=== PATIENT | female | born 1955 | race Caucasian/White ===

== ENCOUNTER 2018-01-14 15:36 | Emergency (ER) | payer BC ==
[~2018-01-14] VITALS: Ht 160 cm; Wt 118.0 kg
[2018-01-14 15:53] VITALS: BP 246/112; PULSE 87; RESP 18; TEMP 98; O2SAT 98
[2018-01-14 16:55] VITALS: BP 220/82; PULSE 78; RESP 18; O2SAT 98
[2018-01-14] MEDS ORDERED: ACETAMINOPHEN/HYDROcodone 325 MG/5 MG TAB PO ONE (17:00)
--- NOTE | 2018-01-14 17:03 | PD ---
HPI Chief Complaint: Fall Time Seen by Provider: 16:39 Travel History International Travel<30 days: No Contact w/Intl Traveler<30days: No Traveled to known affect area: No History of Present Illness HPI 62-year-old female patient presents to the ER today because she states that she had tripped and fallen on her right side, is having right arm pains which she currently rated a 5 out of 10. She states is subsiding while she is in the ER. She denies hitting her head, had no loss consciousness. She denies any chest pains, trouble breathing, or any other issues or injuries. Modifying Factors: None Associated Signs & Symptoms: Fall, right arm injury Risk Factors: None PFSH Past Medical History Medical History: Denies Significant Hx ?: Not : 2 Para: 2 Past Surgical History Cholecystectomy: Yes Hysterectomy: No Social History Alcohol Use: No Tobacco Use: No Substance Use: No Allergies-Medications (Allergen,Severity, Reaction): Coded Allergies: No Known Allergies (Unverified , 01/14/18) Reported Meds & Prescriptions Reported Meds & Active Scripts Active No Active Prescriptions or Reported Medications Review of Systems Except as stated in HPI: all other systems reviewed are Neg Physical Exam Narrative GENERAL: Well-developed obese elderly white female patient currently in mild distress. Awake and oriented 3. SKIN: Focused skin assessment warm/dry. HEAD: Atraumatic. Normocephalic. EYES: Pupils equal and round. No scleral icterus. No injection or drainage. ENT: No nasal bleeding or discharge. Mucous membranes pink and moist. NECK: Trachea midline. No JVD. CARDIOVASCULAR: Regular rate and rhythm. No murmur appreciated. RESPIRATORY: No accessory muscle use. Clear to auscultation. Breath sounds equal bilaterally. GASTROINTESTINAL: Abdomen soft, non-tender, nondistended. Hepatic and splenic margins not palpable. MUSCULOSKELETAL: No obvious deformities. No clubbing. No cyanosis. No edema. Right arm mildly tender to palpation in the posterior elbow area with no obvious deformities. Nontender range of motion. NEUROLOGICAL: Awake and alert. No obvious cranial nerve deficits. Motor grossly within normal limits. Normal speech. PSYCHIATRIC: Appropriate mood and affect; insight and judgment normal. Data Data Last Documented VS Vital Signs Date Time Temp Pulse Resp B/P (MAP) Pulse Ox O2 Delivery O2 Flow Rate FiO2 01/14/18 16:55 78 18 220/82 (128) 98 Room Air 01/14/18 15:53 98.0 Orders Orders Elbow, Limited (Ap&Lat) (01/14/18 16:39) Forearm (2vws) (01/14/18 16:39) Humerus (Min 2vws) (01/14/18 16:39) Acetamin-Hydrocod 325-5 Mg ([place] 5-325 (01/14/18 17:00) Clonidine (Catapres) (01/14/18 19:00) Splint Or Brace Apply/Monitor (01/14/18 18:54) [facility] Medical Decision Making Medical Screen Exam Complete: Yes Emergency Medical Condition: Yes Medical Record Reviewed: Yes Interpretation(s) Last 24 hours Impressions Radius/Ulna X-Ray 01/14/18 163 Signed Impressions: CONCLUSION: Mildly displaced right radial head fracture. Humerus X-Ray 01/14/18 163 Signed Impressions: CONCLUSION: Negative for humerus fracture. Radial head fracture. Elbow X-Ray 01/14/181638 Signed Impressions: CONCLUSION: Mildly displaced right radial head fracture. Differential Diagnosis Fall, right elbow injury: Contusions versus fractures Narrative Course There is a right radial fracture. However, patient states that the pain is not bothering her very much at all, she is ranging her arms without issues. At this point, she is placed in a long-arm splint and sling, to follow-up with orthopedics doctor. However, patient's blood pressure is quite elevated and she was given clonidine in the ER. She will need to follow-up with regarding this issue as well. She is otherwise fairly asymptomatic, denies any chest pains, trouble breathing, or any other issues. Physician Communication Physician Communication Case is signed out to Dr. Argueta at 7 PM awaiting reevaluation of blood pressure after the clonidine. Can be released with improvement in blood pressure to follow-up with primary care doctor. Diagnosis Primary Impression: High blood pressure Additional Impression: Radial head fracture, closed Scripts No Active Prescriptions or Reported Meds Disposition: 01 DISCHARGE HOME Condition: Stable Yair Small MD Jan 14, 2018 17:03
--- NOTE | 2018-01-14 17:40 | RADRPT ---
EXAM DATE: 01/14/2018 5:24 PM EDT AGE/SEX: 62 years / Female INDICATIONS: Evaluate right forearm for trauma, fell CLINICAL DATA: This is the patient's initial encounter. Patient reports that signs and symptoms have been present for 1 day and indicates a pain score of 0/10. MEDICAL/SURGICAL HISTORY: None. None. COMPARISON: No prior exams available for comparison. FINDINGS: There is right radial head fracture. No dislocation. Positive elbow joint effusion. No other fracture identified. CONCLUSION: Mildly displaced right radial head fracture. Electronically signed by: Ap Winters MD 01/14/2018 5:39 PM EDT
--- NOTE | 2018-01-14 17:40 | RADRPT ---
EXAM DATE: 01/14/2018 5:23 PM EDT AGE/SEX: 62 years / Female INDICATIONS: Evaluate right elbow for trauma, fell CLINICAL DATA: This is the patient's initial encounter. Patient reports that signs and symptoms have been present for 1 day and indicates a pain score of 0/10. MEDICAL/SURGICAL HISTORY: None. None. COMPARISON: No prior exams available for comparison. FINDINGS: Mildly displaced radial head fracture with elbow joint effusion. No other fracture. No dislocation. CONCLUSION: Mildly displaced right radial head fracture. Electronically signed by: Ap Winters MD 01/14/2018 5:39 PM EDT
--- NOTE | 2018-01-14 17:40 | RADRPT ---
EXAM DATE: 01/14/2018 5:20 PM EDT AGE/SEX: 62 years / Female INDICATIONS: Evaluate right humerus for trauma CLINICAL DATA: This is the patient's initial encounter. Patient reports that signs and symptoms have been present for 1 day and indicates a pain score of 0/10. MEDICAL/SURGICAL HISTORY: None. None. COMPARISON: [facility] [place], FOREARM RIGHT (2VWS), 01/14/2018. . FINDINGS: No humerus fracture. Incidental mildly displaced radial head fracture. Osseous density is normal. So ft tissues are unremarkable. No radiopaque foreign bodies seen. CONCLUSION: Negative for humerus fracture. Radial head fracture. Electronically signed by: Ap Winters MD 01/14/2018 5:38 PM EDT
[2018-01-14] MEDS ORDERED: cloNIDine HCL 0.2 MG TAB PO ONE (19:00)
[2018-01-14] MEDS ORDERED: amLODIPine BESYLATE 5 MG TAB PO ONE (19:45)
[2018-01-14 20:59] VITALS: BP 184/75
[2018-01-14] MEDS ORDERED: PERC5TAB12 PO (21:02)
[2018-01-14] MEDS ORDERED: AMLO5 PO (21:02)
--- NOTE | 2018-01-14 21:03 | PD ---
Data Data Last Documented VS Vital Signs Date Time Temp Pulse Resp B/P (MAP) Pulse Ox O2 Delivery O2 Flow Rate FiO2 01/14/18 20:59 184/75 (111) 01/14/18 16:55 78 18 98 Room Air 01/14/18 15:53 98.0 Orders Orders Elbow, Limited (Ap&Lat) (01/14/18 16:39) Forearm (2vws) (01/14/18 16:39) Humerus (Min 2vws) (01/14/18 16:39) Acetamin-Hydrocod 325-5 Mg ([place] 5-325 (01/14/18 17:00) Clonidine (Catapres) (01/14/18 19:00) Splint Or Brace Apply/Monitor (01/14/18 18:54) Amlodipine (Norvasc) (01/14/18 19:45) MDM Supervised Visit with JAMILA: No Narrative Course Signed out to me to follow-up on blood pressure. Blood pressure came down after the clonidine. Will start her on Norvasc. Recommend close outpatient follow-up. Diagnosis Primary Impression: High blood pressure Additional Impression: Radial head fracture, closed Additional Instruction: Follow-up with your primary physician with an orthopedic physician since he returned home. They will not want to keep the splint on your arm for more than a week or so, as it can lead to stiffness and problems. Take Norvasc as prescribed. Use caution as it can cause lightheadedness when he first stand up. Return to the emergency department for any new or worsening symptoms. Med/Other Pt SpecificInfo: Prescription(s) given Scripts Amlodipine (Norvasc) 5 Mg Tab 5 MG PO DAILY for Blood Pressure Management, #30 TAB 0 Refills Prov: Juan A Argueta MD 01/14/18 Oxycodone-Acetaminophen (Percocet) 5-325 mg Tab 1 TAB PO Q6H Y for PAIN, #15 TAB 0 Refills Prov: Juan A Argueta MD 01/14/18 Disposition: 01 DISCHARGE HOME Condition: Stable Juan A Argueta MD Jan 14, 2018 21:03
== END 2018-01-14 21:11 | disposition home or self-care (01) ==
LOC: NEPE 15:36
DX: S52.121A Displaced fracture of head of right radius, initial encounter for closed fracture (principal); I10 Essential (primary) hypertension; M25.421 Effusion, right elbow; W01.0XXA Fall on same level from slipping, tripping and stumbling without subsequent striking against object, initial encounter
CPT/HCPCS: 29105; 73060; 73070; 73090